=== PATIENT | male | born 1985 | race Caucasian/White ===

== ENCOUNTER 2019-09-04 14:52 | Outpatient (CLI) | payer BC, SELFPAY ==
[2019-09-04 16:44] LABS: Abs Immature Grans 0.03 k/cumm (0.0-0.09); Absolute Basophil Count 0.01 k/cumm (0.0-0.2); Absolute Eosinophil Count 0.39 k/cumm (0.0-0.7); Absolute Monocyte Count 0.28 k/cumm (0.11-0.7); Absolute Neutrophil Count 2.49 k/cumm (1.2-6.7); Basophils % 0.2; Eosinophils % 7.4; HCT 41.7 % (40.0-50.0); HGB 14.4 g/dL (13.5-17.5); Immature Grans % 0.6 %; Lymphocytes % 39.6; Mean Corp. HGB Concentration 34.5 g/dL (32.0-36.0); Mean Corpuscular Hemoglobin 31.3 pg (27.0-33.0); Mean Corpuscular Volume 90.7 fL (80-95); Mean Platelet Volume 10.7 fL (8.0-11.0); Monocytes % 5.3; Neutrophils % 46.9; Platelet Count 211 x1000/uL (130-400); RBC Distribution Width 13.2 % (11.8-14.1)
[2019-09-04 18:35] LABS: ALT 39 U/L (16-63); AST 25 U/L (15-37); Albumin 4.3 g/dL (3.4-5.0); Alkaline Phosphatase 55 U/L (46-116); Anion Gap 11.6 mmol/L (3-11); BUN 16 mg/dL (7-18); Bilirubin, Total 0.3 mg/dL (0.2-1.0); CO2 25.4 mmol/L (21.0-32.0); CREATININE 0.87 mg/dL (0.70-1.30); Chloride 101 mmol/L (98-107); Glucose 109 mg/dL (74-106); LDH 186 U/L (85-227); Potassium 4.1 mmol/L (3.5-5.1); Sodium 138 mmol/L (136-145); Total Protein 7.4 g/dL (6.4-8.2)
[2019-09-08 10:53] LABS: AFP Tumor Marker <2.5 ng/mL (<8.1)
[2019-09-08 15:13] LABS: Beta-HCG, Quant, Tumor Marker <0.6 IU/L (<1.4)
== END 2019-09-04 15:12 ==
PROVIDERS: PCP Physician Assistant; Visit Provider Internal Medicine
DX: Z85.47 Personal history of malignant neoplasm of testis (principal)
CPT/HCPCS: 80053; 82105; 83615; 84702; 85025

== ENCOUNTER 2022-08-11 18:56 | Emergency (ER) | payer BC, SELFPAY ==
[2022-08-11 19:01] VITALS: BP 130/54; PULSE 75; RESP 16; TEMP 36.4; O2SAT 95
--- NOTE | 2022-08-11 19:33 | ED.GENADUL_ITS ---
Discharge Plan Disposition Patient Disposition: Home Condition: Good Discharge Details Clinical Impression: Finger laceration Primary Care Provider: Maynor Deal ED Provider: Palak Márquez Home Meds and New Rx's Prescriptions: Continued propranolol 20 mg tablet 20 mg PO BID gabapentin 600 mg tablet 1,200 mg PO TID fluoxetine 20 mg tablet 20 mg PO DAILY bupropion HCl 150 mg tablet sustained-release 12 hr 150 mg PO BID Discharge Instructions Instructions: Finger Laceration (ED) Additional Instructions: Wound was closed with adhesive. Please keep wound clean, dry, covered. Monitor for signs of infection including redness, warmth, drainage, increased pain, fevers/chills. If you develop these or other new/worsening symptoms, please seek care urgently once again. Please allow adhesive to come off naturally, do not pick or pull at this. You may apply a Band-Aid over the area to help keep this protected. Please do not apply any ointment over this as it may cause it to breakdown prematurely. Follow-up with your primary care for reevaluation of your wound Referrals: Maynor Deal MD [Primary Care Provider] - Discharge Data Discharge Date/Time-TO BE ENTERED AT DEPARTURE: 08/11/22 20:38 Medical Decision Making Patient is a pleasant [id number] 37-year-old male, up-to-date on immunizations, presenting today with chief complaint of laceration to the left index finger. Reports a prior to arrival he was sharpening a knife when he slipped and actually cut his finger. Denies other injury at the time of the incident. Denies any numbness or tingling. Up-to-date on tetanus. On exam, patient has a linear laceration, no active bleeding. Neurovascularly intact. Superficial with no deep structure involvement. Patient and I discussed treatment options. While it appaers, based on his clothing and dressing, that he had some signficant bleeding at home, this has since subsided. We discussed treatment options at length, will move forward ith adhesive closure after discussing risks/benefitst and expected procedural steps. Patient's wound was copiously irrigated. It was explored to base in a bloodless field with no FB or debris noted. Wound edges alreayd lie in approximated fashion. Thin layer of adhesive applied. Patient tolerated this well. We discussed wound care, and adhesvie care in depth. Return precautions discussed. He will fu with PCP for reevaluation of wound. All of his quesitons and concerns were addressed, they are in agreement with this plan. HPI General Date/Time Provider Initiated Documentation: 08/11/22 19:33 . Limitations to Documentation: no limitations . Information obtained by: patient, family and RN notes reviewed . History of Present Illness 37 year old M presents to the emergency department with the chief complaint of left index finger laceration, described as moderate, with intensity rated at 5. Quality is described as aching, and is localized to the left and upper extremity. Patient reports no radiation. Patient started experiencing this minute(s) and it has been constant. other things that improve symptom(s), (comnpression has helped with bleeding) No exacerbating factors reported . Patient notes no other symptoms.. Patient did receive the following treatments prior to arrival, none Related Data Home Medications Medication Instructions Recorded Confirmed bupropion HCl 150 mg tablet,12 hr 150 mg PO BID 05/31/21 08/11/22 sustained-release fluoxetine 20 mg tablet 20 mg PO DAILY 05/31/21 08/11/22 gabapentin 600 mg tablet 1,200 mg PO TID 05/31/21 08/11/22 propranolol 20 mg tablet 20 mg PO BID 05/31/21 08/11/22 Allergies Allergy/AdvReac Type Severity Reaction Status Date / Time No Known Allergies Allergy Verified 08/11/22 19:04 General Stated Complaint: Laceration KATHY: 4 Review of Systems Constitutional Constitutional: Reports as per HPI, Denies chills and Denies fever(s) Musculoskeletal Musculoskeletal: Reports as per HPI Integumentary/Breasts Skin/Breast: Reports as per HPI Neurologic Neurologic: Reports as per HPI, Denies sensory deficit and Denies paresthesias [facility] All Active Problems (Updated 08/11/22 @ 20:16 by GRADY Rainey) Finger laceration (Acute) Abnormal auditory perception of both ears (Acute) Medical History Anxiety and depression Class 1 obesity due to excess calories without serious comorbidity with body mass index (BMI) of 31.0 to 31.9 in adult Health maintenance examination Hearing loss, bilateral 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 Neuralgia, neuritis, and radiculitis, unspecified Pulmonary embolism Surgical History S/P orchiectomy Social History Smoking/Tobacco Use Status: Former Tobacco Use Smoking risk assessment performed?: Yes Alcohol Intake: current Alcohol Intake frequency: holidays/special occasions only Drug use: Never Substance use type: does not use Household members: spouse current occupation: works at [employer] [place] Pets and animals: Yes Pets and animals: cat(s) and dog(s) What is your relationship status?: Panel score (0-1 are the most socially isolated patients): 1 Exam Const General: cooperative, healthy appearing, comfortable, no acute distress and well developed Nutritional Appearance: average body habitus and well nourished Orientation: alert and awake Resp Effort & Inspection: normal respiratory effort, able to speak in complete sentences and no respiratory distress Cardio Rate: regular rate Rhythm: regular rhythm Skin Trauma: laceration Neuro General: patient alert and patient awake Cognition: normal cognition Speech: speech normal Gait: normal gait Sensory Exam: no sensory deficits noted Extrem Hand/finger images: 1. linear laceration, no active bleeding. <1cm linear laceration, appears superifical. Dressing that had been on this is saturated with dried blood. Sensation intact. Full ROM, no ligamentous injury. Capillary refill intact Psych Appearance: grossly normal and well kempt Mental Status: mental status grossly normal Speech and Movement: speech and movement normal Course Vital Signs Vital signs: Vital Signs Temperature 36.4 C 08/11/22 19:01 Pulse 75 08/11/22 19:01 Respiratory Rate 16 08/11/22 19:01 Blood Pressure 130/54 L 08/11/22 19:01 Pulse Oximetry 95 08/11/22 19:01 Temperature 36.4 C 08/11/22 19:01 Temperature Source Tympanic 08/11/22 19:01 Pulse 75 08/11/22 19:01 Respiratory Rate 16 08/11/22 19:01 Respiratory Effort Normal 08/11/22 19:01 Blood Pressure 130/54 L 08/11/22 19:01 Blood Pressure Position Sitting 08/11/22 19:01 Pulse Oximetry 95 08/11/22 19:01 Oxygen Delivery Method Room Air 08/11/22 19:01 Oxygen Flow Rate 0 08/11/22 19:01 Pain Level 5 08/11/22 19:01
[2022-08-11 20:36] VITALS: BP 144/81; PULSE 73; RESP 16; TEMP 36.6; O2SAT 96
== END 2022-08-11 20:38 | disposition home or self-care (01) ==
PROVIDERS: Emergency Provider Physician Assistant; PCP Family Medicine
DX: S61.211A Laceration without foreign body of left index finger without damage to nail, initial encounter (principal); W26.0XXA Contact with knife, initial encounter
CPT/HCPCS: 99281; 99283